=== PATIENT | male | born 1985 | race African-American/Black ===

== ENCOUNTER 2021-08-12 15:34 | Emergency (ER) | payer SELFPAY ==
[2021-08-12] MEDS ORDERED: Penicillin G Benzathine 1,200,000 Units/2 ML Syringe IM ONE (16:56)
[2021-08-12 17:11] VITALS: BP 101/65; PULSE 95
== END 2021-08-12 17:27 | disposition home or self-care (01) ==
LOC: MW.ED 15:34
DX: J02.0 Streptococcal pharyngitis (principal); Z86.16 Personal history of COVID-19
CPT/HCPCS: 87651; 96372; 99283; J0561; 99282

== ENCOUNTER 2022-08-19 11:33 | Emergency (ER) | payer SELFPAY ==
[2022-08-19 12:47] VITALS: BP 116/72; PULSE 75
== END 2022-08-19 12:47 | disposition home or self-care (01) ==
LOC: MW.ED 11:33
DX: R07.0 Pain in throat (principal); Z86.16 Personal history of COVID-19
CPT/HCPCS: 87651-QW; 99283

== ENCOUNTER 2022-11-27 18:38 | Emergency (ER) | payer SELFPAY ==
[2022-11-27] MEDS ORDERED: Dexamethasone 10 MG/ML SDV PO ONE (19:16)
[2022-11-27] MEDS ORDERED: Penicillin G Benzathine 1,200,000 Units/2 ML Syringe IM ONE (19:16)
[2022-11-27 19:30] VITALS: BP 117/78; PULSE 87
== END 2022-11-27 19:30 | disposition home or self-care (01) ==
LOC: MW.ED 18:38
DX: J02.0 Streptococcal pharyngitis (principal); Z86.16 Personal history of COVID-19
CPT/HCPCS: 96372; 99282; J0561; J8540; 99283

== ENCOUNTER 2024-03-12 08:23 | Day surgery (SDC) | payer BC ==
[~2024-03-12 08:23] MED LIST: ceFAZolin 2 GM in Sodium Chloride 0.9% 50 ML IV ONE
[2024-03-12 08:54] VITALS: BP 127/77; PULSE 65
[2024-03-12] MEDS: Lactated Ringers 1,000 ML IV SCH (09:05)
[2024-03-12] MEDS ORDERED: Bupivacaine 0.25% 30 ML SDV ONE (09:30)
[2024-03-12] MEDS ORDERED: Lidocaine 1% 20 ML MDV ONE (09:30)
[2024-03-12] MEDS ORDERED: ceFAZolin 1 GM Vial ONE (10:04)
[2024-03-12] MEDS ORDERED: Lidocaine 1% with EPINEPHrine 1:100,000 10 ML MDV ONE ×2 (10:07→10:27)
== END 2024-03-12 11:00 | disposition home or self-care (01) ==
LOC: MW.SDS 08:23
PROVIDERS: ATTEND Surgery
DX: D17.21 Benign lipomatous neoplasm of skin and subcutaneous tissue of right arm (principal); L91.8 Other hypertrophic disorders of the skin; Z87.891 Personal history of nicotine dependence
CPT/HCPCS: 11200; 24071; J0665; J0690; J7120; J3490